=== PATIENT | male | born 1975 | race Asian ===

== ENCOUNTER 2019-01-19 15:55 | Emergency (ER) | payer OTHER, SELFPAY ==
[2019-01-19 15:57] VITALS: BP 149/97; PULSE 89; RESP 17; TEMP 36.7; O2SAT 99; BMI 24.6
[2019-01-19 16:11] VITALS: BP 131/94; PULSE 85; RESP 15; O2SAT 100
--- NOTE | 2019-01-19 16:38 | EKG12_ITS ---
Test Reason : CP Blood Pressure : / mmHG Vent. Rate : 082 BPM Atrial Rate : 082 BPM P-R Int : 198 ms QRS Dur : 090 ms QT Int : 366 ms P-R-T Axes : 077 084 014 degrees QTc Int : 427 ms Normal sinus rhythm Normal ECG Confirmed by NELSON CONNOLLY, SADAF ([id number]), assistant production editor IRWIN BARRERA ([id number]) on 01/22/2019 10:01:38 AM Referred By: MANJULA Confirmed By:KAEL DAMON MD
--- NOTE | 2019-01-19 16:39 | ED.DCSUM_ITS ---
History of Present Illness Chief Complaint: Chest Pain Informant: Patient Onset: Weeks Timing: Intermittent Quality: Pain, Pressure Worsened By: Movement of Arm Relieved By: Nothing Narrative: Patient is a 43-year-old male with no significant past medical history presenting with chest pain. Patient states he has had substernal chest pain off and on for the past month. He denies any aggravating or alleviating factors with it. He states it does not radiate. Today however he also developed pain over his left anterior chest and into his back. As this was a change he has had to come to the emergency room. He states the pain is not been present for a couple of hours and is been constant. He describes it as sharp. It does seem to be worse when he rolls over or takes a deep breath. He denies any associated cough or upper respiratory symptoms. He denies any nausea, vomiting or abdominal pain. He denies any fever or chills. He denies any shortness of miguel ath or difficulty breathing. He denies any swelling of his legs. He denies any history of DVT or PE. He denies any recent travel. He states he had a checkup earlier this year and was told that everything was normal. He notes his brother had a stroke caused by irregular heart rate and then a subsequent ablation in the past. He denies any other family history of any cardiac disease. Patient d enies any history of tobacco use. He notes he had a murmur as a child but a couple years ago had an ultrasound of his heart which came back normal. CVD Risk Factors: Negative for: Hypertension, Diabetes, Hypercholesterolemia, Family History 1' </=55, Smoking PE Risk Factors: Negative for: Recent Travel/Surgery, Recenet Immobilization, Prior DVT or PE, Cancer, OCP + Smoking + >/=35 Past Medical History - Allergies and Home Meds Allergies/Adverse Reactions: Allergies No Known Allergies Allergy (Verified 01/19/19 15:57) Prior records reviewed: Yes Past Medical History: None Surgical History: cholecystectomy Lives: Spouse/ Significant Other Smoking Status: Never smoker Alcohol: Occasional Drugs: None Review of Systems General: Denies: Chills, Fever, Sweats Eyes: Denies: Visual changes - bilaterally, Diplopia ENT: Denies: Rhinorrhea, Sore throat Cardiovascular: Reports: Chest pain. Denies: Palpitations Respiratory: Denies: Dyspnea, Cough, Dyspnea on exertion Gastrointestinal: Denies: Abdominal pain, Nausea, Vomiting, Diarrhea, Melena, Hematochezia Genitourinary: Denies: Dysuria, Hematuria, Frequency Musculoskeletal: Denies: Back pain, Extremity Pain Skin: Denies: Rash, Wounds Neurological: Denies: Headache, Weakness, Numbness Physical Exam Vital Signs/Narrative: Vital Signs Temp Pulse Resp BP Pulse Ox 01/19/19 16:11 85 15 131/94 H 100 01/19/19 15:57 98.0 F 89 17 149/97 H 99 Inital Vital Signs reviewed: Yes General: Well nourished, Well developed, No Acute Distress Head: Normocephalic, Atraumatic Eyes: Perrl, EOMI ENT: Moist mucous membranes, No rhinorrhea Neck: Supple, Nontender Cardiovascular: Regular rate, Regular rhythm, No murmurs Respiratory: No distress, CTA bilaterally, Chest nontender Abdomen: Soft, Nontender, Nondistended, Normal bowel sounds Back: Nontender, Normal Inspection Extremities: Nontender, No edema Skin: Normal color, No rash Neurological: Alert, Oriented x3, Cranial nerves II-XII grossly intact, Normal Strength, Normal Sensation Psychological: Normal affect, Normal Mood Diagnostic/Tx/Re-eval Chest X-Ray - ED: 2 View, Read by ED Physician, Read by Radiologist, No Acute Disease Clinical Impression(s) from Imaging Studies Chest X-Ray 01/19/19 17:00 IMPRESSION: Normal x-ray examination of the chest. Electronically Signed: Dylon Martins MD at 17:11 EST , Service support , Laboratory Data 01/19/19 01/19/19 16:32 16:32 WBC 6.1 RBC 5.22 Hgb 15.0 Hct 47.1 MCV 90.2 MCH 28.7 MCHC 31.8 L RDW Std Deviation 37.3 RDW Coeff of Feliz 11.4 L Plt Count 330 MPV 8.3 Immature Gran % (Auto) 0.200 Neut % (Auto) 56.7 Lymph % (Auto) 35.7 [place] % (Auto) 4.9 Eos % (Auto) 1.8 Baso % (Auto) 0.7 Absolute Neuts (auto) 3.4 Absolute Lymphs (auto) 2.17 Nucleated RBC % 0 Sodium 140 Potassium 3.2 L Chloride 106 Carbon Dioxide 26.0 Anion Gap 8 BUN 10 Creatinine 0.94 Estim Creat Clear Calc 83.23 Est GFR (MDRD) Af Amer 114 Est GFR (MDRD) Non-Af 94 BUN/Creatinine Ratio 10.7 Glucose 136 H Calcium 8.9 Troponin I < 0.015 - Rhythm Strip Rhythm Strip: Sinus Rhythm Rate: 82 Ectopy: None - EKG Initial EKG Interpretation: Sinus Rhythm, - - Normal sinus rhythm at a rate of 82 Normal axis Normal intervals Nonspecific T wave inversion in lead III Treatment: Aspirin - Medical Decision Making Patient is a 43-year-old male evaluated for chest pain. He has had substernal chest pain for the past month but today it has been in his left anterior upper chest wall. This is new which is why he came to the emergency room. Patient has minimal cardiac risk factors. He has a grossly normal EKG. His troponin is negative. The pain is been constant for at least 4 hours and I do not think a child to troponin is needed. Patient is PE RC negative I do not suspect PE. Chest x-ray does not show any signs of pneumonia or other acute pulmonary process. Patient has normal vital signs. I am not sure the exact cause of his chest pain differential does include chest wall strain as well as GERD for his substernal pain. Patient is counseled that he is safe for further outpatient cardiac evaluation. Do not think he requires admission at this time. Patient is low risk per heart score. Patient is counseled on signs and symptoms requiring return to the emergency room. Patient verbalizes agreement and understand this plan. Patient discharged home in stable and improved condition. ED Disposition - Plan for ED Patient: Disposition: Home or Assisted Living Diagnosis: Chest pain Instructions: CHEST PAIN, Uncertain Cause Additional Instructions: Call your primary care doctor tomorrow to arrange follow-up within the next few days. Return to emergency room for worsening symptoms. At this time I think you are safe to go home. Take Tylenol as needed for your pain.
[2019-01-19 16:49] LABS: Absolute Lymphocyte Count 2.17 X10^3/uL (0.83-4.51); Absolute Neutrophil Count 3.4 X10^3/uL (2.0-7.7); Basophil# 0.04 X10^3/uL; Basophil% 0.7 % (0-1); Eosinophil# 0.11 X10^3/uL; Eosinophils% 1.8 % (0-5); Hematocrit 47.1 % (40-54); Lymphocyte # 2.17 X10^3/ul (4.0); Lymphocyte % 35.7 % (19-41); Mean Corp Hgb Conc 31.8 g/dL (32-36); Mean Corpuscular Hgb 28.7 pg (27.0-32.0); Mean Corpuscular Volume 90.2 fL (80-94); Mean Platelet Vol. 8.3 fl (6.2-12.0); Monocyte% 4.9 % (0-10); NRBC Flagged by Analyzer 0 % (0-5); Neutrophil # 3.44 X10^3/uL (2.7-7.7); Neutrophil % 56.7 % (47-70); Platelet Count 330 K/mm3 (150-450); RBC Distribution Width CV 11.4 % (11.6-14.6); RBC Distribution Width SD 37.3 fl (35.1-43.9); Red Blood Count 5.22 M/mm3 (4.6-6.2); White Blood Count 6.1 K/mm3 (4.4-11.0)
[2019-01-19] MEDS: Aspirin 81 MG TAB.CHEW 324 MG PO (16:54)
--- NOTE | 2019-01-19 17:00 | RAD_ITS ---
STUDY: X-RAY CHEST REASON FOR EXAM: Male, 43 years old. STERNAL CHEST PAIN X1 WEEK RADIATES INTO LEFT SHOULDER TECHNIQUE: PA and lateral views of the chest. COMPARISON: None. FINDINGS: The lungs are clear and expanded. There is no demonstrated pleural abnormality. Normal size heart. Normal mediastinum and nehal. Normal visualized pulmonary arteries. Normal visualized aortic arch and descending thoracic aorta. Normal visualized thoracic spine. Normal visualized ribs, clavicles, and shoulders. There is no demonstrated abnormality of the visualized soft tissue structures of the upper abdomen. RAD/Chest PA and Lateral IMPRESSION: Normal x-ray examination of the chest. Electronically Signed: Dylon Martins MD at 17:11 EST , Service support ,
[2019-01-19 17:08] LABS: Anion Gap 8 (5-15); BUN 10 mg/dL (7-18); BUN/Creat Ratio 10.7 RATIO (10-20); Calcium,Total 8.9 mg/dL (8.5-10.1); Chloride 106 mmol/L (98-107); Creatinine, Serum 0.94 mg/dL (0.70-1.30); EST Glomerular Filtration Rate 94 mL/min (>60); Est Glom Filt Rate - Afr Amer 114 mL/min (>60); Estimated Creatinine Clearance 83.23 ml/min; Glucose 136 mg/dL (74-106); Potassium 3.2 mmol/L (3.5-5.1); Sodium Level 140 mmol/L (136-145)
[2019-01-19 18:02] VITALS: BP 128/88; PULSE 83; RESP 18; O2SAT 98
== END 2019-01-19 18:04 | disposition home or self-care (01) ==
PROVIDERS: Emergency Provider Emergency Medicine; Family Provider Family Medicine; PCP Family Medicine
DX: R07.2 Precordial pain (principal); Z90.49 Acquired absence of other specified parts of digestive tract
CPT/HCPCS: 71046; 80048; 84484; 85025; 93005; 99285; A4216

== ENCOUNTER → 2019-03-15 12:27 | Outpatient (CLI) | payer OTHER, SELFPAY ==
--- NOTE | 2019-03-15 12:36 | MRI_ITS ---
STUDY: MRI LEFT ANKLE WITHOUT CONTRAST REASON FOR EXAM: Male, 43 years old. LEFT ANKLE PTT, INSTABILITY,ACCESSORY NAVICULAR -- chronic pain lateral ankle x 10 years from old injury, pain medial tarsals x 2 years, lump medial TECHNIQUE: Standardized fat and water weighted pulse sequences were obtained in all 3 orthogonal planes. COMPARISON: None. FINDINGS: Normal subcutis adipose space. Os navicularis is noted without edema or abnormal widening or fragmentation. No marrow edema or occult fracture is seen. Normal arch. Normal posterior tibialis tendon. Normal flexor digitorum longus tendon. Normal flexor hallucis longus tendon. Normal peroneus longus and brevis tendons. Normal tibialis anterior tendon. Normal extensor hallucis longus tendon. Normal extensor digitorum longus tendons. Normal Achilles tendon and teno-osseous insertion. Normal plantar fascia. Normal plantar calcaneal tubercles. Normal intrinsic muscles of the rearfoot. Normal distal tibiofibular syndesmotic ligamentous complex. There is diffuse thinning of the anterior talofibular ligament consistent with a remote sprain. Normal subtalar ligaments and sinus tarsi. Normal deltoid ligamentous complexes. Normal plantar calcaneonavicular (spring) ligament. Normal tibiotalar articulation. Normal talar dome. Normal subtalar articulations. Normal talonavicular articulation. Normal calcaneocuboid articulation. Normal navicular-cuneiform articulations. MRI/Lower Ext Joint Only (Routine) IMPRESSION: 1. Os navicularis is noted without edema or abnormal widening or fragmentation. 2. Normal posterior tibialis tendon. 3. Diffuse thinning of the anterior talofibular ligament likely due to a remote sprain injury. Electronically Signed: Dylon Martins MD at 19:14 EST , Service support ,
== END ==
PROVIDERS: PCP Family Medicine; Referring Provider Podiatrist; Visit Provider Podiatrist
DX: M76.822 Posterior tibial tendinitis, left leg (principal); S93.492A Sprain of other ligament of left ankle, initial encounter; M72.2 Plantar fascial fibromatosis; M25.372 Other instability, left ankle; X58.XXXA Exposure to other specified factors, initial encounter; Y93.9 Activity, unspecified; Y92.9 Unspecified place or not applicable; Y99.9 Unspecified external cause status
CPT/HCPCS: 73721

== ENCOUNTER 2021-10-25 13:44 | Emergency (ER) | payer OTHER, SELFPAY ==
[2021-10-25 13:46] VITALS: BP 134/95; PULSE 90; RESP 16; TEMP 36.6; O2SAT 99; BMI 23.9
--- NOTE | 2021-10-25 14:52 | EKG12_ITS ---
Test Reason : SYNCOPE Blood Pressure : / mmHG Vent. Rate : 081 BPM Atrial Rate : 081 BPM P-R Int : 194 ms QRS Dur : 088 ms QT Int : 350 ms P-R-T Axes : 080 080 016 degrees QTc Int : 406 ms Normal sinus rhythm Normal ECG Confirmed by ROBERTO CONNOLLY, JES ([id number]), scientific editor CHRIS CLEMENTS ([id number]) on 10/27/2021 11:15:59 AM Referred By: UR Confirmed By:JES MEJIA MD
--- NOTE | 2021-10-25 14:52 | RAD_ITS ---
HISTORY: SOB. TECHNIQUE: XR Chest 1 View. COMPARISON: 01/19/2019. FINDINGS: CARDIOMEDIASTINAL BORDERS: Cardiac silhouette within normal limits in size. Mediastinal contour unremarkable. LUNGS: Radiographically clear. PLEURA: No pleural effusion or pneumothorax seen. OSSEOUS STRUCTURES: Unremarkable. RAD/Chest 1 View (Portable) IMPRESSION: No acute cardiopulmonary process identified. Electronically Signed: Maile Velasco MD at 15:31 EDT ,
--- NOTE | 2021-10-25 14:53 | EX.ED.DYSGE1 ---
HPI History of Present Illness Chief Complaint: Syncope Informant: patient Narrative Narrative: Patient presents with an episode of lightheadedness, near syncope, palpitations and mild dyspnea. He has had these before. They are thought to possibly be related to panic attack but he did not really feel anxious with this episode. [place] out. 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 He started to get dizzy watching that. He felt lightheaded. He then noticed his heart rate went from about 80 up to about 120. He had mild shortness of breath. No chest pain. He is feeling better now. He states he is overall healthy. No personal or family history of heart disease. He states his last trip was in [place]. No history of DVT PE or family history. No leg swelling or pain. PFSH PFSH Medical History no medical history Home Medications NK 01/19/19 [History Last Taken Unknown] Allergy/AdvReac Type Severity Reaction Status Date / Time No Known Allergies Allergy Verified 10/25/21 13:45 Family History no significant family his Surgical History no surgical history Social History Smoking Status: Never smoker ROS ROS ED Constitutional Constitutional ED: Denies chills or fever(s) Eyes Eyes: Denies change in vision ENT ENT ED: Denies rhinorrhea Cardiovascular Cardiovascular: Reports palpitations; Denies chest pain Respiratory/Chest Respiratory/Chest: Reports dyspnea; Denies cough Gastrointestinal Gastrointestinal: Denies nausea or vomiting Musculoskeletal Musculoskeletal: Denies arthralgias, back pain, myalgias or neck pain Integumentary Denies rash Neurologic Neurologic: Denies paresthesias or weakness Endocrine Endocrinology: Denies polydipsia or polyuria Hematologic/Lymphatic Hematologic/Lymphatic: Denies easy bleeding or easy bruising Allergic/Immunologic Allergic/Immunologic ED: Denies urticaria EXAM Physical Exam Const Vital Signs: 10/25/21 13:46 10/25/21 14:44 10/25/21 16:35 Temperature 97.8 F Temperature Source Temporal Pulse Rate 90 72 Respiratory Rate 16 16 Respiratory Effort Normal Respiratory Pattern Normal Blood Pressure 134/95 H 128/66 H Blood Pressure Mean 108 86 Pulse Ox 99 100 Oxygen Delivery Method Room Air Room Air Positive well nourished and well developed General Appearance ED: well developed; Negative for pallor HEENT HEENT Narrative: Mildly dry mucous membrane Eyes EOMs intact bilaterally Eyes Narrative: No nystagmus including with motion or lateral gaze Neck no lymphadenopathy Chest Wall inspection of chest normal Resp normal respiratory effort and clear to auscultation bilaterally Resp Narrative: No pain with deep breath. He has no dyspnea now. Auscultation: Negative for rales, rhonchi or wheezes GI normal to inspection, nondistended, normoactive bowel sounds Palpation: soft Back/Spine no CVA tenderness Extremity normal to inspection Extremity Narrative: No edema, cords, distended veins, tenderness along the deep venous system or asymmetry. Neuro oriented x3 Psych mental status grossly normal Skin no rashes or lesions noted General Skin Exam: Negative for jaundice or pallor MDM MDM MDM Narrative Medical decision making narrative: Patient CBC electrolytes troponin are all negative. Chest x-ray shows no acute process. EKG is unchanged. Patient's rechecked. He is asymptomatic. He states he has had these episodes several times. He has had them evaluated a couple times. Nothing is ever been found. There is no consistency. He has been told he may have anxiety or panic attacks but does not generally feel anxious. I explained he should follow-up with his physician. He may even get a outpatient stress test although his symptoms are not typical of angina at all. He is asymptomatic, healthy, normal vitals and negative work-up. I think he is okay for discharge at this time. He is comfortable with this plan. Lab Data Attestation: I reviewed the patient's lab results. Labs: Laboratory Results - last 24 hr 10/25/21 10/25/21 15:00 15:00 WBC 6.5 RBC 5.11 Hgb 15.0 Hct 45.7 MCV 89.4 MCH 29.4 MCHC 32.8 RDW Std Deviation 38.0 RDW Coeff of Feliz 11.7 Plt Count 306 MPV 8.4 Immature Gran % (Auto) 0.300 Neut % (Auto) 68.2 Lymph % (Auto) 24.7 [place] % (Auto) 5.8 Eos % (Auto) 0.5 Baso % (Auto) 0.5 Absolute Neuts (auto) 4.5 Absolute Lymphs (auto) 1.61 Nucleated RBC % 0 Sodium 139 Potassium 3.7 Chloride 106 Carbon Dioxide 27.0 Anion Gap 6 BUN 16 Creatinine 0.94 Estim Creat Clear Calc 77.45 Est GFR (MDRD) Af Amer 112 Est GFR (MDRD) Non-Af 92 BUN/Creatinine Ratio 17.0 Glucose 118 H Calcium 9.2 Troponin I High Sens 5 Radiography Diagnostic Testing: Clinical Impression(s) from Imaging Studies Chest X-Ray 10/25/21 14:52 IMPRESSION: No acute cardiopulmonary process identified. Electronically Signed: Maile Velasco MD at 15:31 EDT , EKG Initial EKG: Comments: EKG done for palpitations lightheadedness and near syncope. EKG read by me shows a normal sinus rhythm with overall rate of 81. No ventricular ectopy. No acute ST elevation or depression. There is T wave inversion inferiorly but this and nonspecific changes are chronic/not new. IN interval, QRS duration and QTc normal. This is similar to 19 January 2019. Discharge Plan Triage Chief Complaint: Syncope ED Provider: Villa Pringle Dx/Rx/DC Orders Clinical Impression: Episodic lightheadedness Instructions: ED Dizziness or Syncope ... Prescriptions: No Action NK Primary Care Provider: Ambrose Deng Referrals: Ambrose Deng MD [Primary Care Provider] - As soon as possible Disposition Disposition: Home, Self Care
[2021-10-25 15:08] LABS: Absolute Lymphocyte Count 1.61 X10^3/uL (0.83-4.51); Absolute Neutrophil Count 4.5 X10^3/uL (2.0-7.7); Basophil# 0.03 X10^3/uL; Basophil% 0.5 % (0-1); Eosinophil# 0.03 X10^3/uL; Eosinophils% 0.5 % (0-5); Hematocrit 45.7 % (40-54); Lymphocyte # 1.61 X10^3/ul (0.83-4.51); Lymphocyte % 24.7 % (19-41); Mean Corp Hgb Conc 32.8 g/dL (32-36); Mean Corpuscular Hgb 29.4 pg (27.0-32.0); Mean Corpuscular Volume 89.4 fL (80-94); Mean Platelet Vol. 8.4 fl (6.2-12.0); Monocyte# 0.38 X10^3/uL; Monocyte% 5.8 % (0-10); NRBC Flagged by Analyzer 0 % (0-5); Neutrophil # 4.46 X10^3/uL (2.7-7.7); Neutrophil % 68.2 % (47-70); Platelet Count 306 K/mm3 (150-450); RBC Distribution Width CV 11.7 % (11.6-14.6); Red Blood Count 5.11 M/mm3 (4.6-6.2); White Blood Count 6.5 K/mm3 (4.4-11.0)
[2021-10-25 15:31] LABS: Anion Gap 6 (5-15); BUN 16 mg/dL (7-18); Calcium,Total 9.2 mg/dL (8.5-10.1); Chloride 106 mmol/L (98-107); Creatinine, Serum 0.94 mg/dL (0.70-1.30); EST Glomerular Filtration Rate 92 mL/min (>60); Est Glom Filt Rate - Afr Amer 112 mL/min (>60); Estimated Creatinine Clearance 77.45 ml/min; Glucose 118 mg/dL (74-106); Potassium 3.7 mmol/L (3.5-5.1); Sodium Level 139 mmol/L (136-145); Troponin-I HS 5 pg/mL (3.0-78.0)
[2021-10-25] MEDS: 0.9% Normal Saline 1,000 ML 1000 ML IV (15:47)
[2021-10-25 16:35] VITALS: BP 128/66; PULSE 72; RESP 16; O2SAT 100
[2021-10-25 18:10] VITALS: BP 130/64; PULSE 70; RESP 16; O2SAT 100
== END 2021-10-25 18:11 | disposition home or self-care (01) ==
PROVIDERS: Emergency Provider Emergency Medicine; PCP Family Medicine; Visit Provider Emergency Medicine
DX: R55 Syncope and collapse (principal); R06.02 Shortness of breath; R00.2 Palpitations
CPT/HCPCS: 71045; 80048; 84484; 85025; 93005; 96360; 99285; J7030; A4216

== ENCOUNTER 2021-11-21 09:00 | Outpatient (RCR) | payer OTHER, SELFPAY ==
--- NOTE | 2021-11-06 10:56 | HP.PTEVAL_ITS ---
Patient's Visit Information DANIELA DAVILA is a 46 year old M referred to Physical Therapy by VICTORINA Abbott with a diagnosis of Dizzyness. Date of Evaluation: 11/06/21 Physical Therapist: Robert Alicea, DPT, OCS, CSCS - Visit Plan Frequency: 1x/Week Duration: 4-6 Weeks Plan: weekly x 4-6 to progress adaptationa dn habituation ex as needed. - Subjective I always have some dizzyness. it has been there for 10 years but more sensitive in last 3-4 years. In June his ear cracked on landing and more sensitive now. Went to [employer] and that causes it. it can give him migraines. Went to fair last week and looked up or slooked at kid in a ride and got worse and then bumper cars made him more dizzy again and panic and went to ER. Lungs and heart are good. Blood work was fine. Sent to ENT and no problems. ENT said he might be vestibular sensitive. Eye doctor said he was fine. Dizzy for last two weeks. Missed work last week. Always feel a little off on L side lightheaded. Moving head too quick makes it worse but not spinning. Swings make him worse in the hammock and cannot sit at all in them or he will vomit. 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 L side of neck feels tight at times. Sitting up quick gives him lightheadedness. Lying down acan sometimes. Enjoys walking but has to back off lately. - Objective Walks I adn normal into PT, transfers I, steps reciprocal without rail, easy foam stance even with ec. cervical aROM WFL adn without pain although feels stiff looking up. UE AROM WFL. - B hallpke ritchie testing, - roll test. Slight + L head thrust. Oculomotor: - skew eye deviation. - ocular tilt. no nystagmus with gaze or head shake. pursuit and saccades are normal and asymptomatic. VOR H 30 seconds gives 4/10 dizzy for a few seconds. VOR V not nearly as bad. MSQ positions are clear except head turns and nods which make him short term dizzy and up from knee qhich is quickly moving, and L 180 turns for a quick second. - Balance/Special Test Scores Functional Gait Assessment Score: 30 % Disability: 0 Dizziness Score: 58 - Goals Goal 1:: Dizzyness 100% back to baseline Goal Time Frame: 4-6 Weeks Goal 2:: Pt feel 95% better overall in dizzyness and neck stiffness. Goal Time Frame: 4-6 Weeks Goal 3:: DHI score 10 or less Goal Time Frame: 4-6 Weeks Goal 4:: Work and hobbies of walking without limitations Goal Time Frame: 4-6 Weeks - Rehabilitation Potential Physical Therapy Diagnosis: Likely unilateral vestibular hypofucntion Rehabilitation Potential: Good - Anticipated Interventions Patient/Client Instruction: Educate patient on: Condition, Plan of Care For the Purpose of:: To increase tolerance to activity/condition/position Comment: adapatation adn habituation For the Purpose of:: To increase tolerance to activity/condition/position Thank you for the opportunity to evaluate your patient. For Medicare and Medicare HMO plans, please review the plan of care and approve it. It will need to be FAXED BACK to us at [phone] for Medicare purposes. For Medicare only, by signing this I certify the plan of care. Please let me know if there are questions or concerns regarding this plan of care. Physician Signature: Date:
--- NOTE | 2022-01-26 08:08 | HP.PT.NRP ---
DANIELA HIGGINSLAZARODANN was seen in my office for initial evaluation on 11/06/21. The following Plan of Care was established for this patient: Initial Frequency: 1x/Week Initial Duration: 4-6 Weeks Patient/Client Instruction: Educate patient on: Condition, Plan of Care For the Purpose of:: To increase tolerance to activity/condition/position For the Purpose of:: To increase tolerance to activity/condition/position This patient was last seen in our office 11/21/21. Pertinent comments regarding their Physical therapy will appear below: Pt seen 3 visits of POC and was 90% better. He did not attend his final scheduled visit. At this point, it has been over 2 months and I will discontinue due to nonattendance. At this point I will be discontinuing this patient from physical therapy. I would be happy to see this patient again in the future if found appropriate by the physician. Thank you! Robert Alicea, DPT, OCS, CSCS Balance/Gait/Functional tests - Balance/Special Test Scores Functional Gait Assessment Score: 30 % Disability: 0 Dizziness Score: 58
== END 2021-11-21 19:00 | disposition home or self-care (01) ==
LOC: PT 09:00
PROVIDERS: PCP Family Medicine; Referring Provider Nurse Practitioner Family; Visit Provider Nurse Practitioner Family
DX: R42 Dizziness and giddiness (principal)
CPT/HCPCS: 97110; 97161; 97530

== ENCOUNTER → 2024-05-29 | Outpatient (CLI) | payer OTHER, SELFPAY | END | disposition home or self-care (01) | LOC: SL 19:53 | PROVIDERS: PCP Family Medicine; Referring Provider Family Medicine; Visit Provider Family Medicine | DX: G47.33 Obstructive sleep apnea (adult) (pediatric) (principal) | CPT/HCPCS: 95811 ==